=== PATIENT | male | born 1965 | race Two or more races ===

== ENCOUNTER 2016-06-17 20:25 | Inpatient (IN) | payer SELFPAY ==
[~2016-06-17] VITALS: Ht 160 cm; Wt 93.0 kg
[2016-06-17 21:17] LABS: BASO # 0.1 x10^3/uL (0.0-0.2); BASO % 0 % (0-3); EOS % 1 % (0-3); HEMATOCRIT 34.5 % (39.0-53.0); HEMOGLOBIN 11.9 g/dL (13.0-17.5); LYMPH # 1.2 x10^3/uL (1.0-4.8); LYMPH % 9 % (24-48); MEAN CORPUSCULAR HEMOGLOBIN 27 pg (25-35); MEAN CORPUSCULAR HGB CONC 34 g/dL (31-37); MEAN CORPUSCULAR VOLUME 78 fL (79-100); MONO % 10 % (0-9); NEUT % 80 % (31-73); PLATELET COUNT 135 x10^3/uL (140-400); RED BLOOD COUNT 4.45 x10^6/uL (4.30-5.70); RED CELL DISTRIBUTION WIDTH 18.4 % (11.5-14.5); WHITE BLOOD COUNT 12.9 x10^3/uL (4.0-11.0)
[2016-06-17 21:41] LABS: ALBUMIN 2.2 g/dL (3.4-5.0); ALBUMIN/GLOBULIN RATIO 0.3 (1.0-1.7); CALCIUM 8.4 mg/dL (8.5-10.1); CREATININE 0.8 mg/dL (0.7-1.3); GFR 101.5; POTASSIUM 3.7 mmol/L (3.5-5.1); TOTAL BILIRUBIN 1.7 mg/dL (0.2-1.0); TOTAL PROTEIN 9.2 g/dL (6.4-8.2)
[2016-06-17 21:59] LABS: INR 1.4 (0.8-1.1); PROTHROMBIN TIME PATIENT 16.5 SEC (11.7-14.0)
[2016-06-17] MEDS ORDERED: IV NORMAL SALINE 1000ML BAG 1,000 ML IV ONE (22:30)
[2016-06-17] MEDS ORDERED: CONTRAST GIVEN MC PRN (22:45)
[2016-06-17] MEDS ORDERED: IOHEXOL 300 MG/ML 75 ML VIAL IV ONE (22:45)
--- NOTE | 2016-06-17 23:46 | RAD ---
PROCEDURE CT angiography chest with contrast HISTORY Shortness of breath and tachycardia TECHNIQUE Exposure: One or more of the following individualized dose reduction techniques were utilized for this exam: 1. Automated exposure control. 2. Adjustment of the mA and/or kV according to patient size. 3. Use of iterative reconstruction technique. 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 Motion artifact may decrease sensitivity to detect pulmonary emboli however in light of this no pulmonary artery embolus is evident. Left coronary calcified plaque. Aorta is unremarkable. Heart size is normal. Massive splenomegaly. Mild upper abdominal ascites. There may be changes of liver cirrhosis with surface irregularity of the liver present. Gallbladder obscured by abdominal fluid. Bulky periaortic retroperitoneal adenopathy and adenopathy in the gastrohepatic and hepatuduodenal ligaments and surrounding thepancreas. At the right lateral hepatic lobe there is a 3 centimeter hypodense lesion bulging the capsule which may indicate a mass. Marked elevation of the right diaphragm with complete collapse of the right middle lobe and majority of the right lower lobe. No discrete cutoff of the right bronchi to localize a obstructing central mass. There may be a enlarged 2 centimeter subcarinal mediastinal lymph node. Bones are unremarkable. IMPRESSION 1. No pulmonary artery embolus. 2. Marked elevation of the right diaphragm collapsing the right middle and lower lobes could be indicative of diaphragmatic paralysis or lobar collapse from a airway obstructing lesion at the bronchus intermedius although no discrete hilar mass can be localized. There is mediastinal adenopathy present. 3. Liver cirrhosis and changes of portal hypertension with ascites and splenomegaly. There is a 3 centimeter hypodense lesion bulging the liver capsule of the lateral right hepatic lobe which could be indicative of a mass and could indicate hepatocellular carcinoma, could be further characterized by sonography or MRI. 4. Bulky upper abdominal adenopathy concerning for metastatic disease or secondarily lymphoma. Electronically signed by: Leif Ring MD (June 17, 2016 23:44:45)
[2016-06-17 23:57] LABS: BILIRUBIN,URINE NEGATIVE (NEG); GLUCOSE,URINE NEGATIVE (NEG); NITRITE,URINE NEGATIVE (NEG); PH,URINE 6.5; PROTEIN,URINE NEGATIVE (NEG-TRACE)
[2016-06-18] VITALS (7 sets, daily range): BP systolic 149–162; BP diastolic 83–102
[2016-06-18 00:03] LABS: BACTERIA,URINE 0 /HPF (0-FEW); RBC,URINE 0 /HPF (0-2); SQUAMOUS EPITHELIAL CELL,UR FEW /LPF; WBC,URINE OCC /HPF (0-4)
[2016-06-18] MEDS ORDERED: ONDANSETRON PF 4 MG/2 ML VIAL. IV PRN (00:45)
[2016-06-18] MEDS ORDERED: MORPHINE SULFATE 4 MG/ML DISP.SYRIN. IV PRN (00:45)
[2016-06-18] MEDS ORDERED: CLINDAMYCIN 600MG PREMIX 50 ML IV ONE (01:15)
[2016-06-18] MEDS: IV NORMAL SALINE 1000ML BAG 1,000 ML IV SCH ×2 (01:40→10:45)
--- NOTE | 2016-06-18 02:43 | PHYS DOC ---
Past Medical History Past Medical History: Hypertension Past Surgical History: No Surgical History Alcohol Use: Sober Drug Use: None Adult General Chief Complaint Chief Complaint: SHORTNESS OF BREATH HPI HPI Patient is a 50 year old gentleman with a history significant for coronary artery disease, hypertension who presents here today complaining of shortness of breath as per breath progressing for the last 3 weeks. Patient reports that he had a nosebleed yesterday went to and was evaluated for a nosebleed and reports at that time he complained about his shortness of breath however he reports he was not evaluated for it there. He reports that they did not do any x -rays or any other tests for him other than check his blood in up with his bleeding nose. Patient reports she denies any history of liver disease or kidney disease. Patient reports that he is a former heavy smoker and a former very heavy alcohol user. Patient reports that he is sober for approximately 100 days now and hasn't smoked any cigarettes for approximately 2 months. Patient denies any fevers shakes chills nausea vomiting diarrhea chest pain. Patient reports he had a mild nonproductive cough. Patient reports no swelling to his lower 70s. Patient reports he gets extremely short of breath when he lays flat. Patient denies any melena or bright red blood per rectum. Patient has a dysuria frequency or urgency. Patient reports that the shortness of breath started about 3 weeks ago and he reports progressively getting worse over the last 3 weeks and tonight he said it was much worse. Patient called EMS and was brought to the ED. Upon arrival to the ER patient was placed on 2 L of oxygen by nasal cannula. Patient reports he feels much better with the option on board. Physical exam the ER was relatively unremarkable. Patient's abdomen was distended and he appeared to have stigmata of early cirrhosis. Patient's abdomen was soft nontender no rebound or guarding. Patient's lungs had some mild diffuse laboratory wheezing bilaterally. Patient's heart was regular rate and rhythm. Patient's lower extremities revealed 1+ bipedal edema. Patient's ER workup was consistent with the following. Patient had a mildly elevated WBC count with an elevated lactic acid level. Although patient was afebrile here in the ER I am concerned that he might have some infection somewhere. Patient's chest x-ray revealed a markedly elevated right hemidiaphragm versus a possible right hemidiaphragm with possible pneumonia versus pleural effusion. A CT scan was obtained due to his shortness of breath and tachycardia to rule out a possible pulmonary embolism. Patient did have an elevated d-dimer. Patient's CT scan of his chest revealed no pulmonary ambles him. He had a marked elevation of the right diaphragm collapsing the right middle and lower lobes which could be indicative of diaphragmatic paralysis or lobar collapse from a airway obstructing lesion of the bronchus intermedius although no discrete hilar mass was localized. There is a mediastinal adenopathy present. There was also liver cirrhosis and changes of portal hypertension with ascites and splenomegaly. There was a 3 cm hyperdense lesion bulging the liver capsule of the lateral right hepatic lobe which could be indicative of a mass in could indicate hepatocellular carcinoma this needs to be further characterized by sonography or MRI. There was bulky upper abdominal adenopathy concerning for metastatic disease or secondary lymphoma. Given the patient's lactic acid level that was elevated his elevated white count and his tachycardia I'm concerned that he might have a postobstructive pneumonia causing the atelectasis and volume loss in his right lung. We went ahead and started him on clindamycin and Rocephin to cover for postobstructive pneumonia in case there was a tumor there causing atelectasis. I feel that the patient will be best served by being admitted to the hospital for IV antibiotics and evaluation of his dyspnea. The dyspnea could also be secondary to his enlarged liver resulting in the elevated right hemidiaphragm. Also possibility of acute right hemidiaphragm paralysis causing his dyspnea. Patient had a pulse ox of 88% on room air. This is hypoxia. Patient was placed on 3 L of nasal cannula with a pulse ox of 99% feels much improved. #1. Cirrhosis. Patient reports no history of cirrhosis been diagnosed in the past. Patient does have splenomegaly and portal hypertension consistent with cirrhosis. Patient does have a significant amount of ascites. Patient's right hemidiaphragm is elevated which may be secondary to his cirrhosis. #2. Dyspnea etiology unclear. This may be secondary to pleural effusion versus pneumonia versus his elevated right hemidiaphragm which might be acute. We do not have any old x-rays to compare with. #3. Possible postobstructive pneumonia secondary to possible blockage of his bronchus intermedius. #4. Elevated lactic acid level Review of Systems Review of Systems Constitutional: Denies fever or chills [] Eyes: Denies change in visual acuity, redness, or eye pain [] HENT: Denies nasal congestion or sore throat [] All other review systems are negative except as documented in the history of present illness portion. Current Medications Current Medications Current Medications Medications (Trade) Dose Ordered Sig/[place] Start Time Stop Time Status Last Admin Dose Admin Ceftriaxone Sodium 50 ml @ 100 mls/hr 1X ONCE 06/18/16 00:45 06/18/16 01:14 DC 06/18/16 01:35 100 MLS/HR Clindamycin Phosphate 50 ml @ 100 mls/hr 1X ONCE 06/18/16 01:15 06/18/16 01:44 DC 06/18/16 00:40 100 MLS/HR Info (Do NOT chart on this entry -- for MONITORING) 1 each PRN DAILY PRN 06/17/16 22:45 06/19/16 22:44 Iohexol (Omnipaque 300 Mg/ml) 75 ml 1X ONCE 06/17/16 22:45 06/17/16 22:46 DC 06/17/16 23:01 75 ML Morphine Sulfate 4 mg PRN Q2HR PRN 06/18/16 00:45 06/19/16 00:44 Ondansetron HCl (Zofran) 4 mg PRN Q8HRS PRN 06/18/16 00:45 06/19/16 00:44 Sodium Chloride 1,000 ml @ 125 mls/hr Q8H 06/18/16 00:45 06/19/16 00:44 Allergies Allergies Allergies Coded Allergies Type Severity Reaction Last Updated Verified No Known Drug Allergies 06/17/16 No Physical Exam Physical Exam Constitutional: Well developed, well nourished, no acute distress, non-toxic appearance. [] HENT: Normocephalic, atraumatic, bilateral external ears normal, Eyes: PERRLA, EOMI, Neck: Normal range of motion, Cardiovascular:Heart rate regular and tachycardic. Lungs & Thorax: Bilateral breath sounds basilar rales. Breath sounds. Abdomen: Bowel sounds normal, soft, no tenderness, no masses, no pulsatile masses. Distended abdomen. Positive ascites wave. [] Skin: Warm, dry, Back: No tenderness, no CVA tenderness. [] Extremities: No tenderness, no cyanosis, no clubbing, ROM intact, 5 people edema Neurologic: Alert and oriented X 3, normal motor function, normal sensory function, no focal deficits noted. [] Psychologic: Affect normal, judgement normal, mood normal. [] Current Patient Data Vital Signs Vital Signs Date Time Temp Pulse Resp B/P (MAP) Pulse Ox O2 Delivery O2 Flow Rate FiO2 06/17/16 20:35 98.7 130 24 179/102 (127) 91 Room Air 98.7 Lab Values Laboratory Tests Test 06/17/16 20:50 06/17/16 21:35 06/17/16 23:48 White Blood Count 12.9 x10^3/uL (4.0-11.0) H Red Blood Count 4.45 x10^6/uL (4.30-5.70) Hemoglobin 11.9 g/dL (13.0-17.5) L Hematocrit 34.5 % (39.0-53.0) L Mean Corpuscular Volume 78 fL (79-100) L Mean Corpuscular Hemoglobin 27 pg (25-35) Mean Corpuscular Hemoglobin Concent 34 g/dL (31-37) Red Cell Distribution Width 18.4 % (11.5-14.5) H Platelet Count 135 x10^3/uL (140-400) L Neutrophils (%) (Auto) 80 % (31-73) H Lymphocytes (%) (Auto) 9 % (24-48) L Monocytes (%) (Auto) 10 % (0-9) H Eosinophils (%) (Auto) 1 % (0-3) Basophils (%) (Auto) 0 % (0-3) Neutrophils # (Auto) 10.2 x10^3uL (1.8-7.7) H Lymphocytes # (Auto) 1.2 x10^3/uL (1.0-4.8) Monocytes # (Auto) 1.3 x10^3/uL (0.0-1.1) H Eosinophils # (Auto) 0.1 x10^3/uL (0.0-0.7) Basophils # (Auto) 0.1 x10^3/uL (0.0-0.2) Sodium Level 134 mmol/L (136-145) L Potassium Level 3.7 mmol/L (3.5-5.1) Chloride Level 98 mmol/L (98-107) Carbon Dioxide Level 27 mmol/L (21-32) Anion Gap 9 (6-14) Blood Urea Nitrogen 10 mg/dL (8-26) Creatinine 0.8 mg/dL (0.7-1.3) Estimated GFR (Cockcroft-Gault) 101.5 BUN/Creatinine Ratio 13 (6-20) Glucose Level 137 mg/dL (70-99) H Lactic Acid Level 3.3 mmol/L (0.4-2.0) H Calcium Level 8.4 mg/dL (8.5-10.1) L Total Bilirubin 1.7 mg/dL (0.2-1.0) H Aspartate Amino Transferase (AST) 67 U/L (15-37) H Alanine Aminotransferase (ALT) 22 U/L (16-63) Alkaline Phosphatase 103 U/L (46-116) Troponin I Quantitative < 0.017 ng/mL (0.000-0.055) NV-Tou-I-Type Natriuretic Peptide 119 pg/mL (0-124) Total Protein 9.2 g/dL (6.4-8.2) H Albumin 2.2 g/dL (3.4-5.0) L Albumin/Globulin Ratio 0.3 (1.0-1.7) L Prothrombin Time 16.5 SEC (11.7-14.0) H Prothrombin Time INR 1.4 (0.8-1.1) H D-Dimer ([place]) 16.27 ug/mlFEU (0.00-0.50) H Urine Collection Type Unknown Urine Color Yellow Urine Clarity Clear Urine pH 6.5 Urine Specific [place] >=1.030 Urine Protein Negative mg/dL (NEG-TRACE) Urine Glucose (UA) Negative mg/dL (NEG) Urine Ketones (Stick) Negative mg/dL (NEG) Urine Blood Negative (NEG) Urine Nitrite Negative (NEG) Urine Bilirubin Negative (NEG) Urine Urobilinogen Dipstick 1.0 mg/dL (0.2 mg/dL) Urine Leukocyte Esterase Negative (NEG) Urine RBC 0 /HPF (0-2) Urine WBC Occ /HPF (0-4) Urine Squamous Epithelial Cells Few /LPF Urine Bacteria 0 /HPF (0-FEW) Urine Mucus Slight /LPF Laboratory Tests 06/17/16 20:50 Laboratory Tests 06/17/16 20:50 EKG EKG [] Radiology/Procedures Radiology/Procedures [] Course & Med Decision Making Course & Med Decision Making Pertinent Labs and Imaging studies reviewed. (See chart for details) [] Dragon Disclaimer Dragon Disclaimer This electronic medical record was generated, in whole or in part, using a voice recognition dictation system. Departure Departure Impression: Primary Impression: Postobstructive pneumonia Additional Impressions: Elevated lactic acid level Elevated white blood cell count Cirrhosis Ascites Hypoxia Dyspnea Disposition: ADMITTED INPATIENT Admitting Physician: Other (reusch) Condition: GUARDED Referrals: NO PCP (PCP) Problem Qualifiers Additional Impressions: Elevated white blood cell count Leukocytosis type: unspecified Qualified Codes: D72.829 - Elevated white blood cell count, unspecified Cirrhosis Hepatic cirrhosis type: alcoholic cirrhosis Ascites presence: with ascites Qualified Codes: K70.31 - Alcoholic cirrhosis of liver with ascites Ascites Ascites type: due to alcoholic cirrhosis Qualified Codes: K70.31 - Alcoholic cirrhosis of liver with ascites Dyspnea Dyspnea type: dyspnea on exertion Qualified Codes: R06.09 - Other forms of dyspnea SELWYN CORONEL MD June 18, 2016 02:43
--- NOTE | 2016-06-18 03:03 | ACF ---
Admission Forms Criteria PNEUMONIA, COMMUNITY ACQUIRED Clinical Indications for Admission to Inpatient Care ( Place 'X' for any and all applicable criteria): Admission is indicated for ANY ONE of the following (1)(2)(3): [ ]I. Hypoxemia indicated by ANY ONE of the following: [ ]a) Oxygen saturation less than 90% while breathing room air [ ]b) PO2 less than 60 mm Hg (8.0 kPa) while breathing room air [ ]c) Chronic lung disease with significant deterioration from baseline oxygenation [ ]II. Appropriate diagnostic testing and treatment unavailable in outpatient or recovery facility (eg,testing or infection control measures unavailable(10) [ ]III. Moderate-risk or high-risk category patients (Pneumonia Severity Index (PSI) class IV or V, or CURB-65 score of 3 or greater). [ ]IV. Outpatient treatment failure as indicated by ANY ONE of the following(9) : [ ]a) Failure to respond to antibiotic (eg, resistant organism) [ ]b) Clinically significant adverse effects from medication (eg, vomiting) [ ]c) Complications of pneumonia (eg, empyema, bacteremia) [ ]d) Significant worsening of comorbid cond necessitating inpatient care (eg, chronic heart failure) [X]V. Intermediate-risk category patients (eg, PSI class III or CURB-65 score 2) who do not improve with initial therapy and observation. [ ]. Immunocompromised patients (eg, AIDS, chronic steroid use) at moderate or high risk based on clinical evaluation. [ ]VII. Complicated pleural effusions (eg, exudative, loculated) [ ]VIII.Hemodynamic instability [ ] IX. Altered mental status that is severe or persistent. [ ]X. Dehydration that is severe or persistent. [ ]XI. Bacteremia [ ]XII. Respiratory finding (eg. tachypnea) that do not respond to outpatient or observation care treatment Extended stay beyond goal length of stay may be needed for (20) [ ]a) Unclear diagnosis [ ]b) Pleural disease [ ]c) Severe pneumonia or treatment failure (25 [ ]d) Respiratory failure (anticipate invasive or noninvasive ventilatory support) [ ]e) Abnormal serum electrolytes (serum Na concentration less than 135 mEq/L (mmol/L) (32)(33) [ ]f) Clinically significant comorbid illness (eg, heart failure, atrial fibrillation with rapid heart rate, alcohol withdrawal, renal insufficiency)(34)(35) [ ]g) Comorbid acute exacerbation of COPD(36) [ ]h) Concomitant diagnosis of malignancy that may be associated with malnutrition, immunologic impairment, or bronchial obstruction. [ ]i) Concomitant altered mental status [ ]j) Culture-identified Gram-negative or antibiotic-resistant organism (eg, Pseudomonas, methicillin-resistant Staphylococcus aureus)(30) [ ]k) Healthcare-associated pneumonia The original [employer] [facility] content created by [employer] has been revised. The portions of the content which have been revised are identified through the use of italic text or in bold, and [facility] has neither reviewed nor approved the modified material. All other unmodified content is copyright [employer] [email or web address]. Please see references footnoted in the original [facility] [employer] edition 2016 Admission Criteria Met?: Yes JOJO MOSQUERA June 18, 2016 03:03
--- NOTE | 2016-06-18 07:04 | EKG ---
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
--- NOTE | 2016-06-18 07:22 | RAD ---
Exam performed: One view chest. History: Shortness of breath today. Date of service: 06/17/16. Comparison: 03/05/07. Single AP upright portable view chest findings: Study somewhat limited due to poor inspiratory effort. Elevation of the right hemidiaphragm which may be a combination of infiltrate or pleural effusion. The left lung is essentially clear. There is no pneumothorax. Impression: Elevated right hemidiaphragm likely a combination of infiltrate and effusion.
--- NOTE | 2016-06-18 08:59 | PDOC2 ---
GI CONSULT Reason For Consult: Cirrhosis HPI: HPI: 50 y/o male evaluated in ER for SOA, admitted to cardiac floor w/ this and tachycardia, pulm consult pending. Labs: WBC 12.9, Hgb 11.9 w/ low indices and elevated RDW, plt 135, INR 1.4, bili 1.7, AST 67, ALT 22, Alk Phos 103. For elevated D-dimer had CTA chest which was negative for PE but did elevation of right diaphragm w/ collapse of right middle and lower lobes (?paralysis/ obstructing lesion) w/ mediastinal adenopathy, cirrhosis and portal hypertension w/ ascites and splenomegaly and 3cm right hepatic lobe lesion (? mass/HCC), and upper abdominal adenopathy (?mets/lymphoma). Suspect historian, tells me feeling unwell for about 2-3 weeks w/ SOA, "bloating ," and retching/vomiting. Estimates 10-15 pound weight loss. Denies h/o liver disease. Says previously drank a 6 pack of beer daily, now sober x 100 days except for drinking 1/3 of a beer on Thursday. After that, woke up bleeding from his nose and mouth, went to [facility] and was treated for epistaxis on 06/16/16. No reflux/heartburn, dysphagia, abd pain, diarrhea, constipation, hematochezia, melena. Tried Gas-X, not helpful. Denies taking any medications at home. No previous EGD or colonoscopy. PMH: PMH: TIA, HTN, ?CAD, back injury/pain FH: Family History: No pertinent hx (denies GI cancers, liver disease) Social History: Smoke: Quit ALCOHOL: other (used to drink ~6 pack of beer daily, now attempting sobriety) Drugs: Cocaine (in the past) ROS: GEN: Denies fevers, chills, sweats HEENT: Denies blurred vision, sore throat CV: Denies chest pain RESP: +SOA GI: Per HPI : Denies hematuria, dysuria ENDO: +weight loss NEURO: Denies confusion, dizziness MSK: +back pain SKIN: Denies jaundice, pruritus Vitals: Vitals: Vital Signs Date Time Temp Pulse Resp B/P (MAP) Pulse Ox O2 Delivery O2 Flow Rate FiO2 06/18/16 07:44 97.7 100 18 150/93 (112) 99 Nasal Cannula 97.7 06/18/16 05:56 3.0 Labs: Labs: Laboratory Tests Test 06/17/16 20:50 06/17/16 21:35 06/17/16 23:48 06/18/16 03:04 White Blood Count 12.9 x10^3/uL (4.0-11.0) Red Blood Count 4.45 x10^6/uL (4.30-5.70) Hemoglobin 11.9 g/dL (13.0-17.5) Hematocrit 34.5 % (39.0-53.0) Mean Corpuscular Volume 78 fL (79-100) Mean Corpuscular Hemoglobin 27 pg (25-35) Mean Corpuscular Hemoglobin Concent 34 g/dL (31-37) Red Cell Distribution Width 18.4 % (11.5-14.5) Platelet Count 135 x10^3/uL (140-400) Neutrophils (%) (Auto) 80 % (31-73) Lymphocytes (%) (Auto) 9 % (24-48) Monocytes (%) (Auto) 10 % (0-9) Eosinophils (%) (Auto) 1 % (0-3) Basophils (%) (Auto) 0 % (0-3) Neutrophils # (Auto) 10.2 x10^3uL (1.8-7.7) Lymphocytes # (Auto) 1.2 x10^3/uL (1.0-4.8) Monocytes # (Auto) 1.3 x10^3/uL (0.0-1.1) Eosinophils # (Auto) 0.1 x10^3/uL (0.0-0.7) Basophils # (Auto) 0.1 x10^3/uL (0.0-0.2) Sodium Level 134 mmol/L (136-145) Potassium Level 3.7 mmol/L (3.5-5.1) Chloride Level 98 mmol/L (98-107) Carbon Dioxide Level 27 mmol/L (21-32) Anion Gap 9 (6-14) Blood Urea Nitrogen 10 mg/dL (8-26) Creatinine 0.8 mg/dL (0.7-1.3) Estimated GFR (Cockcroft-Gault) 101.5 BUN/Creatinine Ratio 13 (6-20) Glucose Level 137 mg/dL (70-99) Lactic Acid Level 3.3 mmol/L (0.4-2.0) 1.8 mmol/L (0.4-2.0) Calcium Level 8.4 mg/dL (8.5-10.1) Total Bilirubin 1.7 mg/dL (0.2-1.0) Aspartate Amino Transf (AST/SGOT) 67 U/L (15-37) Alanine Aminotransferase (ALT/SGPT) 22 U/L (16-63) Alkaline Phosphatase 103 U/L (46-116) Troponin I Quantitative < 0.017 ng/mL (0.000-0.055) RQ-Imf-O-Type Natriuretic Peptide 119 pg/mL (0-124) Total Protein 9.2 g/dL (6.4-8.2) Albumin 2.2 g/dL (3.4-5.0) Albumin/Globulin Ratio 0.3 (1.0-1.7) Prothrombin Time 16.5 SEC (11.7-14.0) Prothromb Time International Ratio 1.4 (0.8-1.1) D-Dimer (Marianna) 16.27 ug/mlFEU (0.00-0.50) Urine Collection Type Unknown Urine Color Yellow Urine Clarity Clear Urine pH 6.5 Urine Specific Henderson >=1.030 Urine Protein Negative mg/dL (NEG-TRACE) Urine Glucose (UA) Negative mg/dL (NEG) Urine Ketones (Stick) Negative mg/dL (NEG) Urine Blood Negative (NEG) Urine Nitrite Negative (NEG) Urine Bilirubin Negative (NEG) Urine Urobilinogen Dipstick 1.0 mg/dL (0.2 mg/dL) Urine Leukocyte Esterase Negative (NEG) Urine RBC 0 /HPF (0-2) Urine WBC Occ /HPF (0-4) Urine Squamous Epithelial Cells Few /LPF Urine Bacteria 0 /HPF (0-FEW) Urine Mucus Slight /LPF Allergies: Coded Allergies: No Known Drug Allergies (Unverified , 06/17/16) Medications: Current Medications Medications (Trade) Dose Ordered Sig/Aristides Route PRN Reason Start Time Stop Time Status Last Admin Dose Admin Sodium Chloride 1,000 ml @ 1,000 mls/hr 1X ONCE IV 06/17/16 22:30 06/17/16 23:29 DC 06/17/16 22:30 Iohexol (Omnipaque 300 Mg/ml) 75 ml 1X ONCE IV 06/17/16 22:45 06/17/16 22:46 DC 06/17/16 23:01 Ceftriaxone Sodium 50 ml @ 100 mls/hr 1X ONCE IV 06/18/16 00:45 06/18/16 01:14 DC 06/18/16 01:35 Clindamycin Phosphate 50 ml @ 100 mls/hr 1X ONCE IV 06/18/16 01:15 06/18/16 01:44 DC 06/18/16 00:40 Sodium Chloride 1,000 ml @ 125 mls/hr Q8H IV 06/18/16 00:45 06/19/16 00:44 06/18/16 01:40 Imaging: Imaging: CXR Impression: Elevated right hemidiaphragm likely a combination of infiltrate and effusion. Chest CTA 06/17/16 IMPRESSION 1. No pulmonary artery embolus. 2. Marked elevation of the right diaphragm collapsing the right middle and lower lobes could be indicative of diaphragmatic paralysis or lobar collapse from a airway obstructing lesion at the bronchus intermedius although no discrete hilar mass can be localized. There is mediastinal adenopathy present. 3. Liver cirrhosis and changes of portal hypertension with ascites and splenomegaly. There is a 3 centimeter hypodense lesion bulging the liver capsule of the lateral right hepatic lobe which could be indicative of a mass and could indicate hepatocellular carcinoma, could be further characterized by sonography or MRI. 4. Bulky upper abdominal adenopathy concerning for metastatic disease or secondarily lymphoma. PE: GEN: NAD HEENT: Atraumatic, PERRL LUNGS: nasal cannula, decreased HEART: tachycardic ABD: some distention, non-tender, BS+ EXTREMITY: trace BLE edema SKIN: No rashes, no jaundice NEURO/PSYCH: A & O 3 A/P: A/P: SOA w/ abnormal chest CTA Bloating, n/v, weight loss -onset 2-3 weeks ago Cirrhosis -w/ portal hypertension, ascites, splenomegaly, right hepatic lobe lesion -plt 135, INR 1.4, bili 1.7, AST 67 -alcoholism Dysproteinemia CRC screen -no previous colonoscopy -- D/w Dr. Cortes - will check AFP, CEA, SPEP, Hepatitis panel, CT A/P. MARIAH WELCH June 18, 2016 08:59
[2016-06-18] MEDS ORDERED: PNEUMOCOCCAL VAX SCREEN BY RX. MC ONE (09:00)
[2016-06-18] MEDS ORDERED: PNEUMOC CONJ VACC 23-VALENT 0.5 ML VIAL. VAX IM ONE (09:00)
[2016-06-18] MEDS ORDERED: CONTRAST GIVEN MC PRN (09:45)
[2016-06-18] MEDS ORDERED: IOHEXOL 300 MG/ML 75 ML VIAL IV ONE (09:45)
[2016-06-18] MEDS ORDERED: IOHEXOL 240 MG/ML 50ML VIAL. PO ONE (09:45)
--- NOTE | 2016-06-18 11:44 | PDOC ---
Provider Note Provider Note dictated AYUSH MAYO MD June 18, 2016 11:44
--- NOTE | 2016-06-18 12:41 | RAD ---
Indication: Cirrhosis and hepatic lesion. Axial imaging through the abdomen and pelvis was performed after the administration of intravenous contrast. Correlation is made with the CT chest study from 1 day earlier. Elevation of the right hemidiaphragm with right middle lobe and right lower lobe collapse is again noted. Irregularity of the surface of the liver is again noted, suspicious for cirrhosis. There is a large mass in the right lobe of the liver near the dome posteriorly measuring 5.5 cm AP x 7.9 cm transverse. A second ill-defined low-density mass more inferiorly in the right lobe is seen measuring approximately 4.1 cm in diameter. Moderate perihepatic ascites is seen. The portal vein appears patent. There is dilatation of the splenic vein. The spleen is enlarged and features are suggestive of portal hypertension. Bulky central retroperitoneal as well as hepatogastric lymphadenopathy is noted. Conglomerate of nodes in the upper midline of the abdomen measure approximately 5.0 x 3.6 cm. There is a large portacaval node measuring 3.9 x 3.1 cm. There is also a large aortocaval douglas conglomerate measuring approximately 4.0 x 3.9 cm. There appear to be distal esophageal varices. No adrenal mass is identified. The kidneys are unremarkable. Aorta is nonaneurysmal but does show atherosclerotic changes. The bowel loops are normal caliber. Moderate free fluid throughout the abdomen and pelvis is seen. Bladder is decompressed. Impression: Findings suggestive of cirrhosis and portal hypertension with diffuse ascites, splenomegaly and upper abdominal varices. There are at least 2 solid masses within the liver, suspicious for neoplasm. Primary hepatocellular carcinoma would be a leading consideration. There is central retroperitoneal as well as portacaval and hepatogastric lymphadenopathy as well, suggestive of metastatic disease. PQRS Compliance Statement: One or more of the following individualized dose reduction techniques were utilized for this examination: 1. Automated exposure control 2. Adjustment of the mA and/or kV according to patient size 3. Use of iterative reconstruction technique
--- NOTE | 2016-06-18 13:03 | CONS ---
DATE OF CONSULTATION: ATTENDING PHYSICIAN: Dr. Bolton. REASON FOR CONSULTATION: Abnormal CT chest, dyspnea, hypoxia. HISTORY OF PRESENT ILLNESS: The patient is a 50-year-old male who has history of alcoholism. He was seen 3 weeks ago at for epistaxis and shortness of breath. They said they only packed his nose and discharged him. He was then seen at our hospital with dyspnea. His D-dimer was elevated around 16. As a result, he underwent CT chest. I also saw his chest x-ray and CT chest, he has markedly elevated right hemidiaphragm with enlarged liver and a lesion, 3 cm in size in the liver and bulky retroperitoneal adenopathy and subcarinal adenopathy. There was evidence of cirrhosis and portal hypertension with ascites and splenomegaly. The patient smoked only for a few years, he has lost about 20 pounds in the last few months. He has been a heavy drinker. He also has mild coagulopathy. He no longer has epistaxis. I have been asked to see him for further evaluation. PAST MEDICAL HISTORY: History of TIA, hypertension, history of alcoholism and alcoholic liver disease. SURGERIES: None. ALLERGIES: None. MEDICATIONS: Reviewed as listed in the [facility]. REVIEW OF SYSTEMS: System review as discussed in my history of present illness. SOCIAL HISTORY: Smoked for 2 years, but history of heavy alcohol use. PHYSICAL EXAMINATION: VITAL SIGNS: Blood pressure 162/94, pulse ox 94% on room air, afebrile. HEENT: Sclerae nonicteric. NECK: Supple. LUNGS: Diminished breath sounds, right base. CARDIOVASCULAR: With a regular rate. ABDOMEN: Soft, distended. EXTREMITIES: With no pitting edema. LABORATORY DATA: Reviewed. White cell count 12.9, platelets are 135, hemoglobin 11.9. BUN and creatinine 10 and 0.8. Liver enzymes are elevated with bilirubin of 1.7. INR is 1.4. D-dimer 16.2. IMPRESSION: 1. Abnormal CT chest with markedly elevated right hemidiaphragm causing compressive atelectasis of the right middle and right lower lobe. This is all extrinsic compression and I doubt that he has any endobronchial lesion. 2. Weight loss with mass in the liver and bulky retroperitoneal adenopathy. I suspect we may be dealing with the hepatocellular cancer. Cannot exclude pancreatic cancer or lymphoma. 3. Alcoholic liver disease with elevated bilirubin. 4. Mild coagulopathy. 5. Markedly elevated right shelly-diaphragm with compressive atelectasis of RML/ RLL. I doubt any endobronchial lesion. RECOMMENDATIONS: 1. Discussed with the patient and the family, the CT chest findings were discussed. At this point, I will consult Interventional Radiology to consider biopsy of either liver or retroperitoneal lymph node. 2. CT abdomen and pelvis is scheduled for today. Follow the results. 3. GI consult, and follow their recommendations. 4. Monitor his respiratory status. Continue with oxygen. 5. Abnormal D-dimer with no evidence of pulmonary embolism. The D-dimer is elevated secondary to liver disease and possible malignancy. 6. Discussed with Dr. Siri Bolton and the entire family. We will follow along with you. AYUSH MAYO MD DR: NANDO/alpa JOB#: [id number] / [id number] GINNY
[2016-06-18] MEDS: SPIRONOLACTONE 25 MG TABLET PO SCH (13:32)
--- NOTE | 2016-06-18 16:06 | PDOC ---
Provider Note Provider Note Onc consult dictated- [id number] Probable Metastatic HCC Alcoholic cirrhosis- sober x 100 days Coagulopathy with bruising, recent epistaxis Uninsured Plan: AFP pending Liver/ lymph node bx planned No means to provide palliative tx with current insurance status Palliative care consulted TERRY ABREU DO June 18, 2016 16:06
[2016-06-18] MEDS ORDERED: TEMAZEPAM 7.5 MG CAPSULE PO PRN (19:30)
--- NOTE | 2016-06-18 21:16 | HP ---
ADMIT DATE: 06/18/2016 CHIEF COMPLAINT: Shortness of breath. HISTORY OF PRESENT ILLNESS: The patient is a 50-year-old gentleman with past medical history of CAD and hypertension, who presented with worsening shortness of breath, which had started approximately 3 weeks ago. He relates that this started literally when he was turning from one side to the other and he had to get up out of bed to breathe better. Really never improved during that time. In addition, he had developed nosebleed x 2 yesterday, second time was copious and he actually had presented to . There his nose was packed and he was discharged back to home. Although he had mentioned his shortness of breath, no further evaluation was undertaken there. On presentation here, chest x-ray revealed a markedly elevated right hemidiaphragm. Also had ascites. He was admitted for further workup. A CTA of the chest was obtained to rule out PE. PE indeed was negative. However, elevated right hemidiaphragm was noted showing at least a one 3-cm liver lesion suspicious for metastatic disease, especially in finding of significant intra-abdominal lymphadenopathy. PAST MEDICAL HISTORY: Hypertension, CAD. FAMILY HISTORY: Denies any family members with abdominal abnormalities including cancer. SOCIAL HISTORY: Lives with his family. Actually has a long history of excessive alcohol use, but quit on his own 100 days ago. Has been smoking only briefly in distant past. Denies any other drug use. ALLERGIES: No known drug allergies. MEDICATIONS: None at home. REVIEW OF SYSTEMS: Essentially positive as per HPI mainly for shortness of breath and recent nosebleed. He also noted significant bruising with blood draw at in his left upper extremity. I have not noted any bruising on his torso, however. PHYSICAL EXAMINATION: VITAL SIGNS: From today show a blood pressure of 162/94, heart rate of 109, respiratory rate is 22. He is afebrile, satting 94% on room air. GENERAL: This is an ill-appearing jaundiced gentleman, alert and oriented, in no acute distress. HEENT: Shows no scleral icterus. Temporal wasting is noted. Oral mucosa is pink and moist. Dentition poor. NECK: Without any JVD or lymphadenopathy. LUNGS: Fairly clear. HEART: Has regular rate and rhythm. ABDOMEN: Distended with fluid wave, hepatosplenomegaly are noted. EXTREMITIES: Show no edema. SKIN: Warm, soft and dry. LABORATORY DATA: CBC with a WBC of 12.9, hemoglobin 11.9, platelets of 135. Of note, MCV is only 78. Chemistries: BUN and creatinine of 10 and 0.8. Essentially normal electrolytes say for minimally depressed sodium at 134, AST at 67, total bilirubin at 1.7, albumin at 2.2 with a total protein of 9.2. IMAGING: CT of the abdomen obtained shows cirrhosis and portal hypertension with diffuse ascites, splenomegaly and upper abdominal varices. There are at least two solid masses within the liver suspicious for neoplasm. There is central retroperitoneal as well as portacaval and mesenteric lymphadenopathy suggestive of metastatic disease. ASSESSMENT AND PLAN: The patient is a 50-year-old gentleman with extensive alcohol abuse and resultant cirrhosis who presents with what appears to be a malignancy, most likely HCC with metastatic disease. We will try and obtain a biopsy to confirm. Oncology will be involved as well for consideration of treatment. I suspect that his shortness of breath is related to both elevated hemidiaphragm as well as ascites. Lungs joaquin are actually perfectly clear. We will consider paracentesis for symptomatic relief. The patient has moderate severe hepatic dysfunction with low albumin as well as elevated INR although not massively yet. Continue to monitor his parameters. ESTUARDO GRAHAM MD DR: MIKE/alpa JOB#: [id number] / [id number] GINNY
[2016-06-19] VITALS (22 sets, daily range): BP systolic 126–171; BP diastolic 70–101
[2016-06-19 04:40] LABS: BASO # 0.1 x10^3/uL (0.0-0.2); BASO % 1 % (0-3); EOS % 2 % (0-3); HEMATOCRIT 27.8 % (39.0-53.0); HEMOGLOBIN 9.5 g/dL (13.0-17.5); LYMPH # 0.9 x10^3/uL (1.0-4.8); LYMPH % 10 % (24-48); MEAN CORPUSCULAR HEMOGLOBIN 27 pg (25-35); MEAN CORPUSCULAR HGB CONC 34 g/dL (31-37); MEAN CORPUSCULAR VOLUME 78 fL (79-100); MONO % 10 % (0-9); NEUT % 78 % (31-73); PLATELET COUNT 78 x10^3/uL (140-400); RED BLOOD COUNT 3.55 x10^6/uL (4.30-5.70); RED CELL DISTRIBUTION WIDTH 18.3 % (11.5-14.5); WHITE BLOOD COUNT 8.7 x10^3/uL (4.0-11.0)
[2016-06-19 05:03] LABS: ALBUMIN 1.8 g/dL (3.4-5.0); ALBUMIN/GLOBULIN RATIO 0.3 (1.0-1.7); CALCIUM 7.8 mg/dL (8.5-10.1); CREATININE 0.6 mg/dL (0.7-1.3); GFR 141.5; POTASSIUM 3.6 mmol/L (3.5-5.1); TOTAL BILIRUBIN 1.4 mg/dL (0.2-1.0); TOTAL PROTEIN 7.7 g/dL (6.4-8.2)
[2016-06-19] MEDS: SPIRONOLACTONE 25 MG TABLET PO SCH (08:11)
--- NOTE | 2016-06-19 09:42 | CONS ---
DATE OF CONSULTATION: 06/18/2016 REASON FOR CONSULTATION: Probable hepatocellular carcinoma HISTORY OF PRESENT ILLNESS: The patient is a 50-year-old male, who was seen on 06/15/2016 in the Emergency Room for epistaxis. At that time, that was his only complaint. His hemoglobin was 12.1, platelets 134, INR 1.5, sodium 128, albumin 2.6, and total bilirubin 2.5. Liver enzymes were unremarkable. The epistaxis was resolved and he was discharged from the Emergency Room. He has not had routine health care due to a lack of medical insurance previously. He presented here this morning with shortness of breath and tachycardia. He had an elevated D-dimer, so a CTA of the chest was completed, revealing no pulmonary embolus, but marked elevation of the right diaphragm with collapsing of the right middle and lower lobes of the lung. Mediastinal adenopathy was present. Cirrhotic changes were present in the liver with portal hypertension, ascites, and splenomegaly. There was also a probable 3-cm liver seen in the lateral right hepatic lobe. A CT of the abdomen/pelvis was subsequently completed, confirming two masses present in the liver, one in the right lobe near the dome, measuring 5.5 x 7.9 cm, and a second mass in the right lobe of the liver, measuring 4.1 cm. There was also retroperitoneal, portacaval, hepatogastric adenopathy suggestive of metastatic disease. His only complaint is his chronic back pain, which has been present for several years since a work-related accident. He denies knowing previously of his cirrhosis. He has a heavy alcohol history, now sober for 100 days. PAST MEDICAL HISTORY: TIA, hypertension, heart disease, alcoholic cirrhosis, and chronic back pain. PAST SURGICAL HISTORY: Negative. FAMILY HISTORY: His parents had hypertension and diabetes. SOCIAL HISTORY: Previously smoked, previously drank heavily and is attempting sobriety again, now without alcohol for 100 days. Previous cocaine use as well. ALLERGIES: No known drug allergies. CURRENT MEDICATIONS: Spironolactone, morphine, normal saline, and Zofran. REVIEW OF SYSTEMS: Ten-point review of systems completed and unremarkable with the exception of the chronic back pain, recent epistaxis. PHYSICAL EXAMINATION: VITAL SIGNS: Temperature 98.4, pulse 100, respiratory rate 20, blood pressure 157/94, and 100% O2 on 3 liters. GENERAL: He is alert and oriented. He is not in any distress, but does appear fatigued. HEENT: No scleral icterus present. Mucous membranes are moist. CARDIOVASCULAR: Heart is regular in rhythm and rate. LUNGS: Clear to auscultation bilaterally. ABDOMEN: Soft, nontender, and distended. NEUROLOGIC: No focal deficits. EXTREMITIES: No edema. SKIN: Several healing bruises present. IMAGING AND LABORATORY DATA: Outside [facility] records reviewed as above. Labs, CT imaging, and provider notes reviewed from this hospitalization as well. ASSESSMENT AND PLAN: The patient is a 50-year-old male with the following medical problems: 1. Alcoholic cirrhosis, which has likely predisposed him to probable hepatocellular carcinoma. 2. Large liver lesions with metastatic adenopathy, suggestive of hepatocellular carcinoma. 3. Coagulopathy. 4. Thrombocytopenia, mild. 5. Uninsured status. We discussed today that this likely does represent an advanced malignancy, probable hepatocellular carcinoma. AFP has been ordered. Biopsy of a liver lesion or pathologic lymph node is planned. If this does prove to be hepatocellular carcinoma, there are palliative medication options such as sorafenib; however, I have no means to provide him with this medication without medical insurance. Social Work has visited with him. I provided him with my contact information should he obtain any insurance. If he is not able to obtain insurance, I would recommend enrollment with a local hospice agency. At this time, his primary concern is his chronic back pain; however, it is likely that given his advanced probable malignancy, further symptoms may increase and his health may deteriorate quickly. Thank you for allowing me to participate in his care. TERRY ABREU DO DR: Russ JOB#: [id number] / [id number] GINNY
[2016-06-19] MEDS ORDERED: LIDOCAINE 1% / SOD BICARB 8.4% 20 ML VIAL. IJ ONE ×2 (10:06→11:15)
[2016-06-19] MEDS ORDERED: FLUMAZENIL 0.5 MG/5 ML VIAL. IV ONE (10:23)
[2016-06-19] MEDS ORDERED: MIDAZOLAM HCL/PF 5 MG/5 ML VIAL. ONE (10:23)
[2016-06-19] MEDS ORDERED: fentaNYL PF VIAL 250 MCG/5 ML VIAL ONE (10:23)
[2016-06-19] MEDS ORDERED: NALOXONE 0.4 MG/ML VIAL. ONE (10:23)
[2016-06-19] MEDS ORDERED: fentaNYL PF VIAL 250 MCG/5 ML VIAL IV ONE (11:15)
--- NOTE | 2016-06-19 11:25 | PDOC2 ---
PALLIATIVE CARE Palliative Care Note Palliative Care Consult requested by Dr. Tiera Del Cid to address plan of care Diagnosis: ?HCC; ETOH abuse. PMH: CAD, HTN Patient alert, sitting on side of bed. Denies pain, SOB, nausea States he lives with "girlfriends" Family includes sister Blanca and niece Breanna. States he has never completed AD. Would like to name his sister-Blanca and Breanna as his POA's Patient is willing to meet with family when results of testing completed. Acknowledges he has no job and no insurance. Will re-visit with him again today. 1503 Met with patient and family again. Patient is asking about prognosis. Has been told weeks. Reviewed Hospice. Patient prefers to go to his home, however family is encouraging him to come to one of their homes. Discussed Code Status: Patient states "I don't know" Patient will remain full code. Have discussed options for Hospice with Yoselyn GEE. When patient and family have decided will have more discussion. Bx. done. 1531 Spoke with family. No preference in Hospice Agency. Have not made a decision about who's home he will go to but will inform staff in am. [facility] Hospital bed, oxygen, [facility] JESICA JEFFERSON June 19, 2016 11:25
--- NOTE | 2016-06-19 11:29 | PDOC ---
PROGRESS NOTES Chief Complaint Chief Complaint SOB ASSESSMENT AND PLAN: 1. SOB: "mechanical", due to elevated hemidiaphragm and ascites. 2. Hepatic masses: susp for HCC (with meets to local LN). VIR bx pending, AFP pending. appreciate Dr Del Cid's input: unfortunately, no rx available for him palliative consult 3. Anemia: microcytic. suspect iron deficiency vs sever inflammation. check anemia labs 4. Prognosis: extremely poor. d/w Jazmyne Antwon: after discussion with him and family, wants DNR/DNI. confirmed. will work on getting hospice for him 5. Dispo: anticipate home in AM History of Present Illness History of Present Illness SOB, darlyn in certain positions. no pain after procedure Vitals Vitals Vital Signs Date Time Temp Pulse Resp B/P (MAP) Pulse Ox O2 Delivery O2 Flow Rate FiO2 06/19/16 11:11 102 20 97 Nasal Cannula 4.0 06/19/16 07:00 98.2 135/90 (105) 98.2 Physical Exam General: Alert, Cooperative, No acute distress Heart: Regular rate Lungs: Clear Abdomen: Normal bowel sounds, Other (distented, ascites) Skin: No rashes Labs LABS Laboratory Tests Test 06/18/16 16:45 06/19/16 04:17 Tumor Marker Alpha Fetoprotein 166.0 ng/mL (0.0-8.3) White Blood Count 8.7 x10^3/uL (4.0-11.0) Red Blood Count 3.55 x10^6/uL (4.30-5.70) Hemoglobin 9.5 g/dL (13.0-17.5) Hematocrit 27.8 % (39.0-53.0) Mean Corpuscular Volume 78 fL (79-100) Mean Corpuscular Hemoglobin 27 pg (25-35) Mean Corpuscular Hemoglobin Concent 34 g/dL (31-37) Red Cell Distribution Width 18.3 % (11.5-14.5) Platelet Count 78 x10^3/uL (140-400) Neutrophils (%) (Auto) 78 % (31-73) Lymphocytes (%) (Auto) 10 % (24-48) Monocytes (%) (Auto) 10 % (0-9) Eosinophils (%) (Auto) 2 % (0-3) Basophils (%) (Auto) 1 % (0-3) Neutrophils # (Auto) 6.7 x10^3uL (1.8-7.7) Lymphocytes # (Auto) 0.9 x10^3/uL (1.0-4.8) Monocytes # (Auto) 0.9 x10^3/uL (0.0-1.1) Eosinophils # (Auto) 0.1 x10^3/uL (0.0-0.7) Basophils # (Auto) 0.1 x10^3/uL (0.0-0.2) Sodium Level 134 mmol/L (136-145) Potassium Level 3.6 mmol/L (3.5-5.1) Chloride Level 101 mmol/L (98-107) Carbon Dioxide Level 27 mmol/L (21-32) Anion Gap 6 (6-14) Blood Urea Nitrogen 8 mg/dL (8-26) Creatinine 0.6 mg/dL (0.7-1.3) Estimated GFR (Cockcroft-Gault) 141.5 BUN/Creatinine Ratio 13 (6-20) Glucose Level 119 mg/dL (70-99) Calcium Level 7.8 mg/dL (8.5-10.1) Total Bilirubin 1.4 mg/dL (0.2-1.0) Aspartate Amino Transf (AST/SGOT) 53 U/L (15-37) Alanine Aminotransferase (ALT/SGPT) 18 U/L (16-63) Alkaline Phosphatase 73 U/L (46-116) Total Protein 7.7 g/dL (6.4-8.2) Albumin 1.8 g/dL (3.4-5.0) Albumin/Globulin Ratio 0.3 (1.0-1.7) ESTUARDO GRAHAM MD June 19, 2016 11:29
[2016-06-19] MEDS ORDERED: MIDAZOLAM HCL/PF 5 MG/5 ML VIAL. IV ONE (11:30)
[2016-06-19] MEDS ORDERED: CONTRAST GIVEN MC PRN (11:30)
[2016-06-19] MEDS ORDERED: IOHEXOL 300 MG/ML 75 ML VIAL IV ONE (11:30)
--- NOTE | 2016-06-19 11:35 | PDOC ---
MODERATE SEDATION ASSESSMENT RISKS/ALTERNATIVES Risks/Alternatives Risks and alternatives of this type of sedation and procedure discussed with: RISK/ALTERNATIVES: Patient H & P ON CHART H & P H & P on chart and reviewed for co-morbid conditions and appropriate labs. H&P ON CHART: Yes STATUS PREG STATUS ASSESSED: N/A MEDS/ALLERGIES REVIEWED Meds/Allergies Reviewed Medications and Allergies including time and route of recently administered narcotics and sedatives. MEDS/ALLERGIES REVIEWED: Yes ASA RATING ASA RATING: III AIRWAY ASSESSMENT Airway Assessment Airway patency, oral function limitations, presence of caps, crowns, dentures, partials, and ability to extend neck assessed. AIRWAY ASSESSMENT: Yes MALLAMPATI SCORE MALLAMPATI SCORE: III PRE-SEDATION ASSESSMENT PRE-SEDATION ASSESSMENT: Yes QAMAR INFANTE MD June 19, 2016 11:35
--- NOTE | 2016-06-19 11:41 | PDOC ---
Exam Stonehand Stonehand Hema Pre-Procedure Diagnosis Pre-Procedure Diagnosis 50 YO male with ETOH cirrhosis, ascites, splenomegaly. Low density liver lesions, with RP and portocaval adenopathy, and with elevated alpha protein. Likely metastatic HCCA, superimposed upon cirrhosis. Post-Procedure Diagnosis Post-Procedure Diagnosis Same Procedure Performed Procedure Performed CT guided bx of central RP adenopathy Type of Anesthesia Type of Anesthesia Local + Mod sedation Estimated Blood Loss EBL: Minimal Specimens Specimans 3 14G core bx samples obtained------2.5 core samples to path in formalin and 0.5 core sample to path in cell flow media. Condition of Patient Condition of Patient Stable. No apparent complication. Disposition Disposition From IR/CT return to 206 for recovery. F/u with HIMS, GI, Pulmonary, and Oncology. Full report to follow. QAMAR INFANTE MD June 19, 2016 11:41
[2016-06-19 12:22] LABS: % SAT IRON 17 % (15-34); IRON,SERUM 31 ug/dL (65-175)
--- NOTE | 2016-06-19 12:53 | PDOC ---
PULMONARY PROGRESS NOTES Subjective no soa Vitals Vital Signs Date Time Temp Pulse Resp B/P (MAP) Pulse Ox O2 Delivery O2 Flow Rate FiO2 06/19/16 11:22 100 20 97 Nasal Cannula 4.0 06/19/16 07:00 98.2 135/90 (105) 98.2 General: Alert, No acute distress Lungs: Other (decrease bs) Cardiovascular: S1 Abdomen: Soft Neuro Exam: Alert Extremities: No Edema Skin: Warm Labs Laboratory Tests Test 06/17/16 20:50 06/17/16 21:35 06/17/16 23:48 06/18/16 03:04 White Blood Count 12.9 x10^3/uL (4.0-11.0) Red Blood Count 4.45 x10^6/uL (4.30-5.70) Hemoglobin 11.9 g/dL (13.0-17.5) Hematocrit 34.5 % (39.0-53.0) Mean Corpuscular Volume 78 fL (79-100) Mean Corpuscular Hemoglobin 27 pg (25-35) Mean Corpuscular Hemoglobin Concent 34 g/dL (31-37) Red Cell Distribution Width 18.4 % (11.5-14.5) Platelet Count 135 x10^3/uL (140-400) Neutrophils (%) (Auto) 80 % (31-73) Lymphocytes (%) (Auto) 9 % (24-48) Monocytes (%) (Auto) 10 % (0-9) Eosinophils (%) (Auto) 1 % (0-3) Basophils (%) (Auto) 0 % (0-3) Neutrophils # (Auto) 10.2 x10^3uL (1.8-7.7) Lymphocytes # (Auto) 1.2 x10^3/uL (1.0-4.8) Monocytes # (Auto) 1.3 x10^3/uL (0.0-1.1) Eosinophils # (Auto) 0.1 x10^3/uL (0.0-0.7) Basophils # (Auto) 0.1 x10^3/uL (0.0-0.2) Sodium Level 134 mmol/L (136-145) Potassium Level 3.7 mmol/L (3.5-5.1) Chloride Level 98 mmol/L (98-107) Carbon Dioxide Level 27 mmol/L (21-32) Anion Gap 9 (6-14) Blood Urea Nitrogen 10 mg/dL (8-26) Creatinine 0.8 mg/dL (0.7-1.3) Estimated GFR (Cockcroft-Gault) 101.5 BUN/Creatinine Ratio 13 (6-20) Glucose Level 137 mg/dL (70-99) Lactic Acid Level 3.3 mmol/L (0.4-2.0) 1.8 mmol/L (0.4-2.0) Calcium Level 8.4 mg/dL (8.5-10.1) Total Bilirubin 1.7 mg/dL (0.2-1.0) Aspartate Amino Transf (AST/SGOT) 67 U/L (15-37) Alanine Aminotransferase (ALT/SGPT) 22 U/L (16-63) Alkaline Phosphatase 103 U/L (46-116) Troponin I Quantitative < 0.017 ng/mL (0.000-0.055) GD-Soa-N-Type Natriuretic Peptide 119 pg/mL (0-124) Total Protein 9.2 g/dL (6.4-8.2) Albumin 2.2 g/dL (3.4-5.0) Albumin/Globulin Ratio 0.3 (1.0-1.7) Prothrombin Time 16.5 SEC (11.7-14.0) Prothromb Time International Ratio 1.4 (0.8-1.1) D-Dimer (Marianna) 16.27 ug/mlFEU (0.00-0.50) Urine Collection Type Unknown Urine Color Yellow Urine Clarity Clear Urine pH 6.5 Urine Specific Linwood >=1.030 Urine Protein Negative mg/dL (NEG-TRACE) Urine Glucose (UA) Negative mg/dL (NEG) Urine Ketones (Stick) Negative mg/dL (NEG) Urine Blood Negative (NEG) Urine Nitrite Negative (NEG) Urine Bilirubin Negative (NEG) Urine Urobilinogen Dipstick 1.0 mg/dL (0.2 mg/dL) Urine Leukocyte Esterase Negative (NEG) Urine RBC 0 /HPF (0-2) Urine WBC Occ /HPF (0-4) Urine Squamous Epithelial Cells Few /LPF Urine Bacteria 0 /HPF (0-FEW) Urine Mucus Slight /LPF Test 06/18/16 16:45 06/19/16 04:17 5/11/17 11:50 Tumor Marker Alpha Fetoprotein 166.0 ng/mL (0.0-8.3) White Blood Count 8.7 x10^3/uL (4.0-11.0) Red Blood Count 3.55 x10^6/uL (4.30-5.70) Hemoglobin 9.5 g/dL (13.0-17.5) Hematocrit 27.8 % (39.0-53.0) Mean Corpuscular Volume 78 fL (79-100) Mean Corpuscular Hemoglobin 27 pg (25-35) Mean Corpuscular Hemoglobin Concent 34 g/dL (31-37) Red Cell Distribution Width 18.3 % (11.5-14.5) Platelet Count 78 x10^3/uL (140-400) Neutrophils (%) (Auto) 78 % (31-73) Lymphocytes (%) (Auto) 10 % (24-48) Monocytes (%) (Auto) 10 % (0-9) Eosinophils (%) (Auto) 2 % (0-3) Basophils (%) (Auto) 1 % (0-3) Neutrophils # (Auto) 6.7 x10^3uL (1.8-7.7) Lymphocytes # (Auto) 0.9 x10^3/uL (1.0-4.8) Monocytes # (Auto) 0.9 x10^3/uL (0.0-1.1) Eosinophils # (Auto) 0.1 x10^3/uL (0.0-0.7) Basophils # (Auto) 0.1 x10^3/uL (0.0-0.2) Sodium Level 134 mmol/L (136-145) Potassium Level 3.6 mmol/L (3.5-5.1) Chloride Level 101 mmol/L (98-107) Carbon Dioxide Level 27 mmol/L (21-32) Anion Gap 6 (6-14) Blood Urea Nitrogen 8 mg/dL (8-26) Creatinine 0.6 mg/dL (0.7-1.3) Estimated GFR (Cockcroft-Gault) 141.5 BUN/Creatinine Ratio 13 (6-20) Glucose Level 119 mg/dL (70-99) Calcium Level 7.8 mg/dL (8.5-10.1) Total Bilirubin 1.4 mg/dL (0.2-1.0) Aspartate Amino Transf (AST/SGOT) 53 U/L (15-37) Alanine Aminotransferase (ALT/SGPT) 18 U/L (16-63) Alkaline Phosphatase 73 U/L (46-116) Total Protein 7.7 g/dL (6.4-8.2) Albumin 1.8 g/dL (3.4-5.0) Albumin/Globulin Ratio 0.3 (1.0-1.7) Reticulocyte Count (auto) 3.9 % (0.5-2.5) Iron Level 31 ug/dL (65-175) Total Iron Binding Capacity 186 ug/dL (250-450) Iron Saturation 17 % (15-34) Ferritin 626 ng/mL (26-388) Laboratory Tests Test 06/18/16 16:45 06/19/16 04:17 06/19/16 11:50 Tumor Marker Alpha Fetoprotein 166.0 ng/mL (0.0-8.3) White Blood Count 8.7 x10^3/uL (4.0-11.0) Red Blood Count 3.55 x10^6/uL (4.30-5.70) Hemoglobin 9.5 g/dL (13.0-17.5) Hematocrit 27.8 % (39.0-53.0) Mean Corpuscular Volume 78 fL (79-100) Mean Corpuscular Hemoglobin 27 pg (25-35) Mean Corpuscular Hemoglobin Concent 34 g/dL (31-37) Red Cell Distribution Width 18.3 % (11.5-14.5) Platelet Count 78 x10^3/uL (140-400) Neutrophils (%) (Auto) 78 % (31-73) Lymphocytes (%) (Auto) 10 % (24-48) Monocytes (%) (Auto) 10 % (0-9) Eosinophils (%) (Auto) 2 % (0-3) Basophils (%) (Auto) 1 % (0-3) Neutrophils # (Auto) 6.7 x10^3uL (1.8-7.7) Lymphocytes # (Auto) 0.9 x10^3/uL (1.0-4.8) Monocytes # (Auto) 0.9 x10^3/uL (0.0-1.1) Eosinophils # (Auto) 0.1 x10^3/uL (0.0-0.7) Basophils # (Auto) 0.1 x10^3/uL (0.0-0.2) Sodium Level 134 mmol/L (136-145) Potassium Level 3.6 mmol/L (3.5-5.1) Chloride Level 101 mmol/L (98-107) Carbon Dioxide Level 27 mmol/L (21-32) Anion Gap 6 (6-14) Blood Urea Nitrogen 8 mg/dL (8-26) Creatinine 0.6 mg/dL (0.7-1.3) Estimated GFR (Cockcroft-Gault) 141.5 BUN/Creatinine Ratio 13 (6-20) Glucose Level 119 mg/dL (70-99) Calcium Level 7.8 mg/dL (8.5-10.1) Total Bilirubin 1.4 mg/dL (0.2-1.0) Aspartate Amino Transf (AST/SGOT) 53 U/L (15-37) Alanine Aminotransferase (ALT/SGPT) 18 U/L (16-63) Alkaline Phosphatase 73 U/L (46-116) Total Protein 7.7 g/dL (6.4-8.2) Albumin 1.8 g/dL (3.4-5.0) Albumin/Globulin Ratio 0.3 (1.0-1.7) Reticulocyte Count (auto) 3.9 % (0.5-2.5) Iron Level 31 ug/dL (65-175) Total Iron Binding Capacity 186 ug/dL (250-450) Iron Saturation 17 % (15-34) Ferritin 626 ng/mL (26-388) Medications Active Scripts Medications Dose Route/Sig Max Daily Dose Days Date Category No Active Prescriptions or Reported Medications Rx Impression . 1. Abnormal CT chest with markedly elevated right hemidiaphragm causing compressive atelectasis of the right middle and right lower lobe. This is all extrinsic compression and I doubt that he has any endobronchial lesion. 2. Weight loss with mass in the liver and bulky retroperitoneal adenopathy. I suspect we may be dealing with the hepatocellular cancer. Cannot exclude pancreatic cancer or lymphoma. 3. Alcoholic liver disease with elevated bilirubin. 4. Mild coagulopathy. 5. Markedly elevated right shelly-diaphragm with compressive atelectasis of RML/ RLL. I doubt any endobronchial lesion. Plan . 1. s/p retroperitoneal lymph node FNA 2. CT abdomen and pelvis reviewed. Findings suggestive of cirrhosis and portal hypertension with diffuse ascites, splenomegaly and upper abdominal varices. There are at least 2 solid masses within the liver, suspicious for neoplasm. 3. GI recommendations. 4. Monitor his respiratory status. Continue with oxygen. 5. Abnormal D-dimer with no evidence of pulmonary embolism. The D-dimer is elevated secondary to liver disease and possible malignancy. 6. Discussed with Dr. Siri Bolton and the entire family. AYUSH MAYO MD June 19, 2016 12:53
[2016-06-19 13:09] LABS: FOLATE 3.39 ng/ml (3.2-20.0)
[2016-06-19] MEDS: IV NORMAL SALINE 1000ML BAG 1,000 ML IV SCH (13:50)
--- NOTE | 2016-06-19 14:01 | PDOC ---
Subjective: Subjective: Feeling okay, breathing a little better. Objective: Objective: Reviewed other notes. S/p bx central RP adenopathy. Hospice planning per RN. Vital Signs: Vital Signs Date Time Temp Pulse Resp B/P (MAP) Pulse Ox O2 Delivery O2 Flow Rate FiO2 06/19/16 11:22 100 20 97 Nasal Cannula 4.0 06/19/16 07:00 98.2 135/90 (105) 98.2 Labs: Laboratory Tests Test 06/18/16 16:45 06/19/16 04:17 06/19/16 11:50 Total Protein (PEP) Pending Albumin (PEP) Pending Globulin Pending Albumin/Globulin Ratio Pending 0.3 [id number] Pending [id number] Pending Beta Globulins Pending Gamma Globulins Pending Protein Electrophoresis M-Vidal Pending Protein Electrophoresis Comment Pending Tumor Marker Alpha Fetoprotein 166.0 ng/mL Carcinoembryonic Antigen Pending Hepatitis A IgM Antibody Pending Hepatitis B Surface Antigen Pending Hepatitis B Core IgM Antibody Pending Hepatitis C Antibody Pending White Blood Count 8.7 x10^3/uL Red Blood Count 3.55 x10^6/uL Hemoglobin 9.5 g/dL Hematocrit 27.8 % Mean Corpuscular Volume 78 fL Mean Corpuscular Hemoglobin 27 pg Mean Corpuscular Hemoglobin Concent 34 g/dL Red Cell Distribution Width 18.3 % Platelet Count 78 x10^3/uL Neutrophils (%) (Auto) 78 % Lymphocytes (%) (Auto) 10 % Monocytes (%) (Auto) 10 % Eosinophils (%) (Auto) 2 % Basophils (%) (Auto) 1 % Neutrophils # (Auto) 6.7 x10^3uL Lymphocytes # (Auto) 0.9 x10^3/uL Monocytes # (Auto) 0.9 x10^3/uL Eosinophils # (Auto) 0.1 x10^3/uL Basophils # (Auto) 0.1 x10^3/uL Sodium Level 134 mmol/L Potassium Level 3.6 mmol/L Chloride Level 101 mmol/L Carbon Dioxide Level 27 mmol/L Anion Gap 6 Blood Urea Nitrogen 8 mg/dL Creatinine 0.6 mg/dL Estimated GFR (Cockcroft-Gault) 141.5 BUN/Creatinine Ratio 13 Glucose Level 119 mg/dL Calcium Level 7.8 mg/dL Total Bilirubin 1.4 mg/dL Aspartate Amino Transf (AST/SGOT) 53 U/L Alanine Aminotransferase (ALT/SGPT) 18 U/L Alkaline Phosphatase 73 U/L Total Protein 7.7 g/dL Albumin 1.8 g/dL Reticulocyte Count (auto) 3.9 % Iron Level 31 ug/dL Total Iron Binding Capacity 186 ug/dL Iron Saturation 17 % Ferritin 626 ng/mL Vitamin B12 Level 1088 pg/mL Serum Folate 3.39 ng/ml Imaging: CT A/P 06/18/16 Impression: Findings suggestive of cirrhosis and portal hypertension with diffuse ascites, splenomegaly and upper abdominal varices. There are at least 2 solid masses within the liver, suspicious for neoplasm. Primary hepatocellular carcinoma would be a leading consideration. There is central retroperitoneal as well as portacaval and hepatogastric lymphadenopathy as well , suggestive of metastatic disease. PE: GEN: NAD, en route to urinate ABD: distended, non-tender NEURO/PSYCH: A & O 3 OTHER: family present A/P: Liver masses w/ elevated AFP, likely metastatic HCC -- Await further palliative care discussion. MARIAH WELCH June 19, 2016 14:01
--- NOTE | 2016-06-19 15:27 | RAD ---
CT-guided biopsy of central retroperitoneal lymphadenopathy Indication: 50-year-old male with cirrhosis, ascites, and splenomegaly. He has low density liver lesions, retroperitoneal and portacaval lymphadenopathy, and elevated alpha protein. Probable metastatic hepatocellular carcinoma. Image guided biopsy has been requested by oncology for tissue diagnosis. Anesthesia: 32 minutes moderate sedation was provided utilizing a total of 0.5 mg Versed and 25 mcg fentanyl, IV. The patient was appropriately monitored by a qualified independent observer throughout the time of moderate sedation. Consent: The procedure was explained in its entirety to the patient and/or the patient's designated benefits representative by a member of the treatment team. This included a discussion of risks and benefits and acceptable alternatives to the procedure, as well as expected consequences of no treatment at all. Discussion of risks included, but was not limited to, those that are most frequent and those that are rare, but possibly severe or life-threatening, as well as the possibility of unforeseen complications. Contrast material: 75 cc Omnipaque 300. Procedure: Informed consent was obtained from the patient. He was placed on the CT scanner in the left lateral decubitus position. Preliminary noncontrast and dynamic contrast CT images were obtained through abdomen. Those images confirmed the findings of cirrhosis with portal hypertension, including ascites and splenomegaly. Those images also confirmed low-density lesions within right lobe of liver, with bulky retroperitoneal lymphadenopathy. A central retroperitoneal lymph node mass, centered right of midline, interposed between aorta and inferior vena cava, was selected for biopsy. An overlying right posterior skin site was marked and was prepped and draped in the usual sterile fashion. Mild conscious sedation was provided with IV Versed and fentanyl. Using aseptic technique, local anesthesia, and CT guidance, a 13-gauge guide needle was carefully introduced into the central retroperitoneal lymph node mass, inferior to right renal artery and superior to retroaortic left renal vein, which were localized on the dynamic contrast prebiopsy CT images. A total of 3 14-gauge core biopsy samples were obtained. 2 core biopsy samples were entirely submitted in formalin to pathology. The third core biopsy sample was divided, with one half of the sample submitted in formalin and with one half submitted in cell flow holding media. The guide needle was then removed and a sterile dressing was applied. Completion CT images revealed no evidence of significant postbiopsy retroperitoneal bleeding. Patient tolerated the procedure well. Impression: Successful, uneventful CT-guided biopsy of central retroperitoneal lymphadenopathy, as described. PQRS Compliance Statement: One or more of the following individualized dose reduction techniques was utilized for this procedure: 1. Automated exposure control. 2. Adjustment of MA and/or KV according to patient size. 3. Iterative reconstruction technique.
[2016-06-19 17:14] LABS: HEP A IGM ABDY Negative (Negative)
[2016-06-19] MEDS ORDERED: FUROSEMIDE 20 MG/2 ML VIAL. IVP ONE (20:15)
[2016-06-19] MEDS ORDERED: amLODIPine BESYLATE 2.5 MG TABLET PO ONE (20:15)
[2016-06-19] MEDS ORDERED: MORPHINE SULFATE 2 MG/ML DISP.SYRIN. IV PRN (20:15)
[2016-06-19] MEDS: ALBUTEROL SULFATE 2.5 MG/3 ML NEBU. NEB SCH (20:30)
[2016-06-20 03:35] VITALS: BP 138/79
[2016-06-20] MEDS: ALBUTEROL SULFATE 2.5 MG/3 ML NEBU. NEB SCH ×3 (07:04→14:53)
[2016-06-20 07:30] VITALS: BP 133/75
[2016-06-20] MEDS: SPIRONOLACTONE 25 MG TABLET PO SCH (08:31)
[2016-06-20 09:21] LABS: CEA 2.7 ng/mL (0.0-4.7)
--- NOTE | 2016-06-20 09:29 | PDOC ---
Objective: Objective: Per RN - SOA overnight, given Lasix, now improved. Currently family and pt meeting w/ Hospice, etc. Vital Signs: Vital Signs Date Time Temp Pulse Resp B/P (MAP) Pulse Ox O2 Delivery O2 Flow Rate FiO2 06/20/16 08:00 Nasal Cannula 2.0 06/20/16 07:30 98.6 99 19 133/75 (94) 97 98.6 Labs: Laboratory Tests Test 06/19/16 11:50 Reticulocyte Count (auto) 3.9 % Iron Level 31 ug/dL Total Iron Binding Capacity 186 ug/dL Iron Saturation 17 % Ferritin 626 ng/mL Tumor Marker Alpha Fetoprotein 162.2 ng/mL Vitamin B12 Level 1088 pg/mL Serum Folate 3.39 ng/ml PE: no exam due to family meeting A/P: Hep C, liver masses w/ elevated AFP, likely metastatic HCC -- Will return to see after family meeting. Plans for Hospice, likely DC today. MARIAH WELCH June 20, 2016 09:29
--- NOTE | 2016-06-20 10:05 | PDOC ---
PULMONARY PROGRESS NOTES Subjective on 02, sob, is better, no pain, no cough Vitals Vital Signs Date Time Temp Pulse Resp B/P (MAP) Pulse Ox O2 Delivery O2 Flow Rate FiO2 06/20/16 08:00 Nasal Cannula 2.0 06/20/16 07:30 98.6 99 19 133/75 (94) 97 98.6 ROS: No Nausea, No Chest Pain General: Alert, No acute distress HEENT: Other (nc at perrl, nose throat clear) Lungs: Crackles Cardiovascular: S1, S2 Abdomen: Soft, Non-tender Neuro Exam: Alert Extremities: No Edema Skin: Warm Labs Laboratory Tests Test 06/18/16 16:45 06/19/16 04:17 06/19/16 11:50 Tumor Marker Alpha Fetoprotein 166.0 ng/mL (0.0-8.3) 162.2 ng/mL (0.0-8.3) Carcinoembryonic Antigen 2.7 ng/mL (0.0-4.7) Hepatitis A IgM Antibody Negative (Negative) Hepatitis B Surface Antigen Negative (Negative) Hepatitis B Core IgM Antibody Negative (Negative) Hepatitis C Antibody >11.0 s/co ratio White Blood Count 8.7 x10^3/uL (4.0-11.0) Red Blood Count 3.55 x10^6/uL (4.30-5.70) Hemoglobin 9.5 g/dL (13.0-17.5) Hematocrit 27.8 % (39.0-53.0) Mean Corpuscular Volume 78 fL (79-100) Mean Corpuscular Hemoglobin 27 pg (25-35) Mean Corpuscular Hemoglobin Concent 34 g/dL (31-37) Red Cell Distribution Width 18.3 % (11.5-14.5) Platelet Count 78 x10^3/uL (140-400) Neutrophils (%) (Auto) 78 % (31-73) Lymphocytes (%) (Auto) 10 % (24-48) Monocytes (%) (Auto) 10 % (0-9) Eosinophils (%) (Auto) 2 % (0-3) Basophils (%) (Auto) 1 % (0-3) Neutrophils # (Auto) 6.7 x10^3uL (1.8-7.7) Lymphocytes # (Auto) 0.9 x10^3/uL (1.0-4.8) Monocytes # (Auto) 0.9 x10^3/uL (0.0-1.1) Eosinophils # (Auto) 0.1 x10^3/uL (0.0-0.7) Basophils # (Auto) 0.1 x10^3/uL (0.0-0.2) Sodium Level 134 mmol/L (136-145) Potassium Level 3.6 mmol/L (3.5-5.1) Chloride Level 101 mmol/L (98-107) Carbon Dioxide Level 27 mmol/L (21-32) Anion Gap 6 (6-14) Blood Urea Nitrogen 8 mg/dL (8-26) Creatinine 0.6 mg/dL (0.7-1.3) Estimated GFR (Cockcroft-Gault) 141.5 BUN/Creatinine Ratio 13 (6-20) Glucose Level 119 mg/dL (70-99) Calcium Level 7.8 mg/dL (8.5-10.1) Total Bilirubin 1.4 mg/dL (0.2-1.0) Aspartate Amino Transf (AST/SGOT) 53 U/L (15-37) Alanine Aminotransferase (ALT/SGPT) 18 U/L (16-63) Alkaline Phosphatase 73 U/L (46-116) Total Protein 7.7 g/dL (6.4-8.2) Albumin 1.8 g/dL (3.4-5.0) Albumin/Globulin Ratio 0.3 (1.0-1.7) Reticulocyte Count (auto) 3.9 % (0.5-2.5) Iron Level 31 ug/dL (65-175) Total Iron Binding Capacity 186 ug/dL (250-450) Iron Saturation 17 % (15-34) Ferritin 626 ng/mL (26-388) Vitamin B12 Level 1088 pg/mL (247-911) Serum Folate 3.39 ng/ml (3.2-20.0) Laboratory Tests Test 06/19/16 11:50 Reticulocyte Count (auto) 3.9 % (0.5-2.5) Iron Level 31 ug/dL (65-175) Total Iron Binding Capacity 186 ug/dL (250-450) Iron Saturation 17 % (15-34) Ferritin 626 ng/mL (26-388) Tumor Marker Alpha Fetoprotein 162.2 ng/mL (0.0-8.3) Vitamin B12 Level 1088 pg/mL (247-911) Serum Folate 3.39 ng/ml (3.2-20.0) Medications Active Scripts Medications Dose Route/Sig Max Daily Dose Days Date Category No Active Prescriptions or Reported Medications Rx Impression . 1. Abnormal CT chest with markedly elevated right hemidiaphragm causing compressive atelectasis of the right middle and right lower lobe. This is all extrinsic compression and I doubt that he has any endobronchial lesion. 2. Weight loss with mass in the liver and bulky retroperitoneal adenopathy. I suspect we may be dealing with the hepatocellular cancer. Cannot exclude pancreatic cancer or lymphoma. 3. Alcoholic liver disease with elevated bilirubin. 4. Mild coagulopathy. 5. Markedly elevated right shelly-diaphragm with compressive atelectasis of RML/ RLL. I doubt any endobronchial lesion. Plan . 1. s/p retroperitoneal lymph node FNA 2. CT abdomen and pelvis reviewed. Findings suggestive of cirrhosis and portal hypertension with diffuse ascites, splenomegaly and upper abdominal varices. There are at least 2 solid masses within the liver, suspicious for neoplasm. 3. GI recommendations. 4. titrate fio2 to keep sat 90% 5. Abnormal D-dimer with no evidence of pulmonary embolism. The D-dimer is elevated secondary to liver disease and possible malignancy. 6. plan for hospice noted, will sign off NICK ALEXANDRA MD June 20, 2016 10:05
[2016-06-20 10:57] VITALS: BP 148/79
[2016-06-20 14:33] VITALS: BP 146/80
--- NOTE | 2016-06-21 03:00 | DS ---
DATE OF DISCHARGE: 06/20/2016 CHIEF COMPLAINT: Shortness of breath. HOSPITAL COURSE: The patient is a 50-year-old alcoholic, who presented to the hospital with ongoing shortness of breath. On examination, he was found with significant elevation of his hemidiaphragm and lesions in his liver highly suspicious for hepatocellular carcinoma with lymph node metastasis. This was addressed with a biopsy of one of the lesions. Oncology was consulted, but was unable to help him down the road as he does not have any insurance. Therefore, palliative care consult was obtained with [facility] and in discussion with him and family, he was agreeable to hospice service at home. A consult was obtained and he was accepted to hospice service. He was discharged on 06/20/2016. PHYSICAL EXAMINATION: VITAL SIGNS: Blood pressure of 135/90, heart rate of 102, respiratory rate 20. GENERAL: This is a 50-year-old gentleman, alert and oriented, in mild respiratory distress. LUNGS: Clear. HEART: Regular rate and rhythm. ABDOMEN: Distended with ascites, no tenderness to palpation. EXTREMITIES: With no edema. DISCHARGE DIAGNOSES: Newly diagnosed hepatocellular carcinoma with metastasis. DISCHARGE DISPOSITION: To home with hospice. DISCHARGE CONDITION: Stable. DISCHARGE MEDICATIONS: Please refer to MAR and hospice notes. DISCHARGE INSTRUCTIONS: The patient will receive hospice at home. ESTUARDO GRAHAM MD DR: UR/nts JOB#: [id number] / [id number] GINNY
[2016-06-24 07:34] LABS: ALPHA 1 0.4 g/dL (0.0-0.4); ALPHA 2 0.5 g/dL (0.4-1.0); BETA 1.1 g/dL (0.7-1.3); GAMMA 3.1 g/dL (0.4-1.8); M-SPIKE Not Observed g/dL (Not Observed); PROTEIN TOTAL 7.6 g/dL (6.0-8.5)
--- NOTE | 2016-06-25 09:04 | PATHOLOGY ---
PATHOLOGY REPORT * * * * * * * * FINAL DIAGNOSIS: Abdominal lymph node, core needle biopsy: - HEPATOCELLULAR CARCINOMA, MODERATELY DIFFERENTIATED. (Please see comment) COMMENT: Controlled immunoperoxidase stains are performed and show the following results in the tumor cells: Cytokeratin AE1 and cytokeratin 7: focally positive in the tumor cells but negative in the majority JERAD: positive in some of the tumor cells Polyclonal CEA: positive in the tumor cells with a focal canalicular pattern Alpha fetoprotein: negative Glypican: negative Cytokeratin 20: negative HSA positive in some of the tumor cells. This case has also been reviewed by Dr. Lewis who agrees with the diagnosis. The findings in this case were discussed with Dr. Sanket Garrido on 06/24/16. (SKM:kirk; d/t: 06/24/2016) REPORT ELECTRONICALLY SIGNED BY: Saundra Barros M.D. DATE/TIME: 06/25/2016 09:03 * * * * * * * * GROSS PATHOLOGY: Received in formalin labeled "Jarrett Jean, abdominal lymph node," are three distinct needle cores of wellington soft tissue ranging from 0.9 to 1.9 cm in length, which are submitted entirely in cassette A1. (CAA; 06/20/2016) INITIAL CPT CODE(S): A; 36418, 39992, 07347, 03039, 75649, 06497, 49617, 22501, 25175 Professional services [place] [address] Technical services performed by [facility] at [address] [place] [address], [facility] [address] [address]. SPECIMEN(S) RECEIVED: A.Retroperitoneal biopsy CLINICAL HISTORY: ? metastatic HCCA, cirrhosis, ascites, liver masses, adenopathy, SM, elevatd AFP PATIENT: JARRETT JEAN /AGE: 9 1965 (Age: 50) PATIENT #: [id number] ALT CASE #: SPECIMEN COLLECTION DATE: 06/19/2016 SPECIMEN RECEIVED DATE: 06/19/2016 [facility] - [address] [place] [address] - PHONE: [phone] * * * END OF REPORT * * *
== END 2016-06-20 15:30 | disposition hospice, home (50) | DRG 424 ==
LOC: ER 20:25 → 2 NORTH 06-18 00:19
PROVIDERS: ADMIT Internal Medicine Hematology & Oncology; ATTEND Internal Medicine Hematology & Oncology
PROC: 07BD3ZX Excision of Aortic Lymphatic, Percutaneous Approach, Diagnostic (ICD-10-PCS; principal; 2016-06-19)
DX: C22.0 Liver cell carcinoma (principal); C77.9 Secondary and unspecified malignant neoplasm of lymph node, unspecified; D68.9 Coagulation defect, unspecified; J98.11 Atelectasis; K76.6 Portal hypertension; B19.20 Unspecified viral hepatitis C without hepatic coma; D50.9 Iron deficiency anemia, unspecified; D69.6 Thrombocytopenia, unspecified; F10.10 Alcohol abuse, uncomplicated; F17.200 Nicotine dependence, unspecified, uncomplicated; G89.29 Other chronic pain; F10.20 Alcohol dependence, uncomplicated; I10 Essential (primary) hypertension; I25.10 Atherosclerotic heart disease of native coronary artery without angina pectoris; K70.31 Alcoholic cirrhosis of liver with ascites; K72.90 Hepatic failure, unspecified without coma; R09.02 Hypoxemia; Z82.49 Family history of ischemic heart disease and other diseases of the circulatory system; Z86.73 Personal history of transient ischemic attack (TIA), and cerebral infarction without residual deficits; Z83.3 Family history of diabetes mellitus; Z51.5 Encounter for palliative care
CPT/HCPCS: 36415; 49180; 71010; 71275; 74177; 77012; 80053; 80074; 81001; 82105; 82378; 82607; 82728; 82746; 83540; 83550; 83605; 83880; 84165; 84484; 85027; 85045; 85379; 85610; 87040; 88305; 88341; 88342; 90732; 93005; 94250; 94640; 96361; 96365; 96368; C1892; J0690; J2250; J3010; J3490; J7030; Q9966; Q9967; 99285-25; G0641